=== PATIENT | male | born 1995 | race Caucasian/White ===

== ENCOUNTER 2017-12-31 09:21 | Emergency (ER) | payer SELFPAY ==
[~2017-12-31] VITALS: Ht 165.1 cm; Wt 63.5 kg
[2017-12-31] MEDS ORDERED: ACETAMINOPHEN ES 500 MG TABLET PO ONE (10:30)
[2017-12-31] MEDS ORDERED: IBUPROFEN 600 MG TABLET PO ONE ×2 (10:30→10:53)
[2017-12-31] MEDS ORDERED: ACETAMINOPHEN ES 500 MG TABLET ONE (10:53)
--- NOTE | 2017-12-31 11:08 | NUR ---
LARRY TECH AT FOR WOUND CARE.
--- NOTE | 2017-12-31 11:18 | NUR ---
Patient discharged to home in stable condition. Written and verbal after care instructions given. Patient verbalizes understanding of instruction.
[2017-12-31 11:20] VITALS: BP 112/75
== END 2017-12-31 11:21 | disposition home or self-care (01) ==
LOC: ER 09:23
DX: S80.02XA Contusion of left knee, initial encounter (principal); S50.312A Abrasion of left elbow, initial encounter; S60.411A Abrasion of left index finger, initial encounter; V03.99XA Pedestrian with other conveyance injured in collision with car, pick-up truck or van, unspecified whether traffic or nontraffic accident, initial encounter; Y93.89 Activity, other specified; Y92.89 Other specified places as the place of occurrence of the external cause; Y99.8 Other external cause status
CPT/HCPCS: 73564; 73700; 99284; A4606; A6402; Z7610